=== PATIENT | male | born 1975 | race Two or more races ===

== ENCOUNTER 2019-04-19 06:24 | Emergency (ER) | payer OTHER ==
[~2019-04-19] VITALS: Ht 170.2 cm; Wt 79.4 kg
[2019-04-19] MEDS ORDERED: UNK B/P MED (06:34)
[2019-04-19] MEDS ORDERED: IBUP800 PO (09:17)
[2019-04-19] MEDS ORDERED: Robaxin-750750 MG PO (09:17)
== END 2019-04-19 10:07 | disposition home or self-care (01) ==
LOC: ER 06:24
DX: S06.9X9A Unspecified intracranial injury with loss of consciousness of unspecified duration, initial encounter (principal); S16.1XXA Strain of muscle, fascia and tendon at neck level, initial encounter; S20.212A Contusion of left front wall of thorax, initial encounter; I10 Essential (primary) hypertension; V64.5XXA Driver of heavy transport vehicle injured in collision with heavy transport vehicle or bus in traffic accident, initial encounter
CPT/HCPCS: 70450; 71101; 72125; 73030; 96374; 99284-25; J1885